=== PATIENT | female | born 1970 | race Caucasian/White ===

== ENCOUNTER → 2016-10-16 | Outpatient (CLI) | payer MEDICAID ==
[~2016-10-16] MED LIST: ACYC-114; ALBU18HF INH; BISA10SU54 PR; BUPR100T6 PO; DIAZ5TAB PO; DIAZ5TAB4; DOCU100C8 PO; FLUO20CA19 PO; FLUO40CA9; HYDR-3138 PO; HYDR-3241; HYDR-882 PO; METH500T7 PO; METH500T97 PO; MORP20CA18; MORP30CP12 PO; MORP30TA3 PO; MORP60TA22 PO; OMNIPAQUE 350 MG/ML, 100ML BOTTLE ONE; ONDA4TAB7 PO; ONDA8TAB16 SL; OXYC5TAB3 PO; POLY17PO5 PO; PROP10TA PO; SENN1TAB7 PO; SUMA25TA3 PO; TOPI100T24
== END | disposition home or self-care (01) ==
LOC: CFH 12:39
PROVIDERS: ATTEND Internal Medicine Gastroenterology
DX: K85.90 Acute pancreatitis without necrosis or infection, unspecified (principal); K86.89 Other specified diseases of pancreas; R94.5 Abnormal results of liver function studies; E27.8 Other specified disorders of adrenal gland
CPT/HCPCS: 71260; 74177; Q9967

== ENCOUNTER 2017-03-11 09:46 | Emergency (ER) | payer MEDICAID ==
[~2017-03-11] VITALS: Ht 160 cm; Wt 72.6 kg
[~2017-03-11 09:46] MED LIST changes: +DIPH25CA61 PO; +DOCU100C33 PO; -DOCU100C8 PO; -HYDR-3138 PO; +HYDR-3237 PO; -OMNIPAQUE 350 MG/ML, 100ML BOTTLE ONE; +ONDA4TAB10 PO; +POLY17PO3 PO; +SUMA100T4 PO
[2017-03-11 09:48] VITALS: BP 125/81
[2017-03-11] MEDS ORDERED: MORPHINE SULFATE 4 MG/ML, 1ML ONE ×2 (10:24→10:44)
[2017-03-11] MEDS ORDERED: ONDANSETRON 2MG/ML, 2ML ONE (10:24)
[2017-03-11] MEDS ORDERED: MORPHINE SULFATE 4 MG/ML, 1ML IVPush PRN (10:30)
[2017-03-11] MEDS ORDERED: SODIUM CHLORIDE FLUSH 10ML SYR IVF ONE (10:30)
[2017-03-11] MEDS ORDERED: ONDANSETRON 2MG/ML, 2ML IVPush ONE (10:30)
[2017-03-11] MEDS ORDERED: SODIUM CHLORIDE 0.9% 1,000ML IVBOLUS ONE (10:30)
[2017-03-11 10:31] LABS: HEMATOCRIT 42.9 % (34.6-47.8); HEMOGLOBIN 14.5 g/dL (11.7-16.4); WHITE BLOOD COUNT 7.1 x10^3/uL (3.4-10)
[2017-03-11 10:44] LABS: BLOOD UREA NITROGEN 8 mg/dL (7-18)
[2017-03-11 10:47] LABS: ASPARTATE AMINO TRANSFERASE 58 U/L (15-37)
== END 2017-03-11 11:32 | disposition home or self-care (01) ==
LOC: ED 10:54
DX: N30.00 Acute cystitis without hematuria (principal); R10.13 Epigastric pain; R10.12 Left upper quadrant pain; R10.31 Right lower quadrant pain; J45.909 Unspecified asthma, uncomplicated; G89.29 Other chronic pain; M54.9 Dorsalgia, unspecified
CPT/HCPCS: 36415; 74020; 80053; 81001; 83690; 85025; 85610; 87077; 87086; 96374; 96375; 99285; J2405; J7030; 87186

== ENCOUNTER 2017-05-28 11:14 | Inpatient (IN) | payer MEDICAID ==
[~2017-05-28] VITALS: Ht 160 cm; Wt 76.1 kg
[2017-05-28] MEDS ORDERED: KETOROLAC 30 MG/1 ML IM ONE (12:00)
[2017-05-28] MEDS ORDERED: KETOROLAC 30 MG/1 ML ONE (12:13)
[2017-05-28 12:35] LABS: BLOOD UREA NITROGEN 11 mg/dL (7-18)
[2017-05-28 12:39] LABS: ASPARTATE AMINO TRANSFERASE 208 U/L (15-37)
[2017-05-28 12:49] LABS: HEMATOCRIT 41.6 % (34.6-47.8); HEMOGLOBIN 14.1 g/dL (11.7-16.4); WHITE BLOOD COUNT 7.5 x10^3/uL (3.4-10)
[2017-05-28] MEDS ORDERED: SODIUM CHLORIDE FLUSH 10ML SYR IVF ONE (13:30)
[2017-05-28] MEDS ORDERED: SODIUM CHLORIDE 0.9% 1,000ML IVBOLUS ONE (13:30)
[2017-05-28] MEDS ORDERED: ONDANSETRON 2MG/ML, 2ML IVPush ONE (13:30)
[2017-05-28] MEDS ORDERED: GABA300C10 PO (13:53)
[2017-05-28] MEDS ORDERED: ONDANSETRON 2MG/ML, 2ML ONE (13:56)
[2017-05-28] MEDS ORDERED: HYDROmorphone 1 MG/ML, 1ML ONE ×2 (13:56→14:41)
[2017-05-28 14:01] LABS: HCG UR LOT HCG7030192
[2017-05-28] MEDS: HYDROmorphone 1 MG/ML, 1ML IVPush PRN ×2 (14:07→14:46)
[2017-05-28 14:12] LABS: HCG UR OBC PASS
[2017-05-28] MEDS ORDERED: SODIUM CHLORIDE 0.9% 1,000 ML IV SCH (15:54)
[2017-05-28] MEDS ORDERED: ONDANSETRON 2MG/ML, 2ML IVPush PRN (16:00)
[2017-05-28] MEDS ORDERED: OXYcodone/APAP 5/325MG TABLET PO PRN (16:00)
[2017-05-28] MEDS ORDERED: LABETALOL 5MG/ML, 20ML IVPush PRN (16:00)
[2017-05-28] MEDS ORDERED: hydrALAzine 20 MG/ML, 1ML IVPush PRN (16:00)
[2017-05-28] MEDS ORDERED: ACETAMINOPHEN 325 MG TABLET PO PRN (16:00)
[2017-05-28] MEDS ORDERED: ALBUTEROL SULFATE 2.5 MG/3 ML NPPB PRN (17:30)
[2017-05-28] MEDS ORDERED: ALBUTEROL SULFATE 2.5 MG/3 ML HHN PRN (18:30)
[2017-05-28] MEDS ORDERED: KETOROLAC 30 MG/1 ML IVPush SCH (19:00)
[2017-05-28 19:23] VITALS: BP 110/68
[2017-05-28] MEDS: HYDROmorphone 2 MG/ML, 1ML IVPush PRN ×2 (19:42→20:33)
[2017-05-28] MEDS ORDERED: GABAPENTIN 300 MG CAPSULE PO SCH (21:00)
[2017-05-28] MEDS ORDERED: HYDROcodone/APAP 5/325 TABLET PO PRN (21:00)
[2017-05-28] MEDS: SODIUM CHLORIDE 0.9% 1,000 ML IV SCH (21:00)
[2017-05-29] MEDS: HYDROmorphone 2 MG/ML, 1ML IVPush PRN ×4 (01:28→12:06)
[2017-05-29] MEDS: HEPARIN 5,000 UNITS/ML, 1ML SQ SCH ×3 (01:28→17:11)
[2017-05-29 01:34] VITALS: BP 93/55
[2017-05-29] MEDS: KETOROLAC 30 MG/1 ML IVPush PRN ×3 (02:23→14:29)
[2017-05-29] MEDS: SODIUM CHLORIDE 0.9% 1,000 ML IV SCH ×2 (05:01→12:07)
[2017-05-29 06:09] LABS: HEMATOCRIT 40.8 % (34.6-47.8); HEMOGLOBIN 13.9 g/dL (11.7-16.4); WHITE BLOOD COUNT 5.5 x10^3/uL (3.4-10)
[2017-05-29 06:22] LABS: BLOOD UREA NITROGEN 11 mg/dL (7-18)
[2017-05-29 06:27] LABS: ASPARTATE AMINO TRANSFERASE 136 U/L (15-37)
[2017-05-29] MEDS ORDERED: PNEUMOCOCCAL 23 VACCINE IM-VACC ONE (06:30)
[2017-05-29 06:56] VITALS: BP 95/59
[2017-05-29] MEDS ORDERED: HYDROmorphone 1 MG/ML, 1ML ONE ×2 (08:17→12:03)
[2017-05-29] MEDS ORDERED: SUMATRIPTAN 100 MG TABLET PO PRN (09:00)
[2017-05-29] MEDS: SUMATRIPTAN 100 MG TABLET PO PRN (12:06)
[2017-05-29 12:16] VITALS: BP 103/63
[2017-05-29] MEDS ORDERED: SODIUM CHLORIDE 0.9% 1,000 ML IV SCH (15:54)
[2017-05-29] MEDS: HYDROcodone/APAP 5/325 TABLET PO PRN ×2 (17:11→23:40)
[2017-05-29 18:57] VITALS: BP 99/61
[2017-05-30 01:32] VITALS: BP 97/55
[2017-05-30] MEDS: KETOROLAC 30 MG/1 ML IVPush PRN (02:44)
[2017-05-30] MEDS: HEPARIN 5,000 UNITS/ML, 1ML SQ SCH ×2 (02:44→09:30)
[2017-05-30 05:30] LABS: ASPARTATE AMINO TRANSFERASE 36 U/L (15-37); BLOOD UREA NITROGEN 14 mg/dL (7-18)
[2017-05-30 06:54] VITALS: BP 109/70
[2017-05-30] MEDS: HYDROcodone/APAP 5/325 TABLET PO PRN (07:31)
[2017-05-30] MEDS: SUMATRIPTAN 100 MG TABLET PO PRN (09:04)
== END 2017-05-30 10:40 | disposition home or self-care (01) | DRG 439 ==
LOC: ED 14:05 → EDIP 15:29 → 3NE 18:18 → DCLOUNGE 05-30 10:33
PROVIDERS: ADMIT Family Medicine; ATTEND Family Medicine
DX: K85.90 Acute pancreatitis without necrosis or infection, unspecified (principal); G82.20 Paraplegia, unspecified; E86.0 Dehydration; K86.1 Other chronic pancreatitis; F17.200 Nicotine dependence, unspecified, uncomplicated; Z80.0 Family history of malignant neoplasm of digestive organs; E66.9 Obesity, unspecified; F10.10 Alcohol abuse, uncomplicated; G43.909 Migraine, unspecified, not intractable, without status migrainosus; G89.29 Other chronic pain; R07.81 Pleurodynia; F32.9 Major depressive disorder, single episode, unspecified; I10 Essential (primary) hypertension; J45.909 Unspecified asthma, uncomplicated; Z90.49 Acquired absence of other specified parts of digestive tract; Z98.84 Bariatric surgery status; Z68.29 Body mass index [BMI] 29.0-29.9, adult; Z87.440 Personal history of urinary (tract) infections; Z23 Encounter for immunization; Z88.0 Allergy status to penicillin; Z88.2 Allergy status to sulfonamides
CPT/HCPCS: 36415; 71020; 80053; 81003; 81025; 83690; 83735; 84100; 85025; 90732; 93005; 96361; 96372; 96374; 96375; 96376; J1170; J1644; J1885; J2405; J7030

== ENCOUNTER 2018-03-18 21:49 | Emergency (ER) | payer MEDICAID ==
[~2018-03-18] VITALS: Ht 160 cm; Wt 69.4 kg
[~2018-03-18 21:49] MED LIST changes: +GABA300C10 PO; -SENN1TAB7 PO; +SENN1TAB8 PO
[2018-03-18 21:56] VITALS: BP 123/56
[2018-03-18] MEDS ORDERED: AMOXICILLIN/CLAV 875-125MG TABLET PO STA (22:47)
[2018-03-18] MEDS ORDERED: DIPHENHYDRAMINE 50 MG CAPSULE PO STA (22:48)
[2018-03-18] MEDS ORDERED: FAMOTIDINE 20 MG TABLET PO ONE (23:00)
[2018-03-18] MEDS ORDERED: FAMOTIDINE 20 MG TABLET ONE (23:06)
[2018-03-18] MEDS ORDERED: AMOXICILLIN/CLAV 875-125MG TABLET ONE (23:06)
[2018-03-18] MEDS ORDERED: DIPHENHYDRAMINE 25 MG CAPSULE ONE (23:06)
== END 2018-03-18 23:34 | disposition home or self-care (01) ==
LOC: ED 23:28
DX: S01.85XA Open bite of other part of head, initial encounter (principal); S01.05XA Open bite of scalp, initial encounter; J45.909 Unspecified asthma, uncomplicated; F17.210 Nicotine dependence, cigarettes, uncomplicated; W55.01XA Bitten by cat, initial encounter; Y93.89 Activity, other specified; Y92.009 Unspecified place in unspecified non-institutional (private) residence as the place of occurrence of the external cause; Y99.8 Other external cause status
CPT/HCPCS: 99284

== ENCOUNTER 2018-05-17 16:52 | Emergency (ER) | payer MEDICAID ==
[~2018-05-17] VITALS: Ht 160 cm; Wt 69.2 kg
[~2018-05-17 16:52] MED LIST changes: +HYDR-3653 PO; -HYDR-882 PO
[2018-05-17 17:01] VITALS: BP 125/84
[2018-05-17] MEDS ORDERED: SILVER SULF. CRM 1% , 25GM TP ONE (17:30)
[2018-05-17] MEDS ORDERED: SILVER SULF. CRM 1% , 25GM ONE (17:48)
[2018-05-17] MEDS ORDERED: OXYcodone/APAP 5/325MG TABLET ONE (17:49)
[2018-05-17] MEDS ORDERED: OXYcodone/APAP 5/325MG TABLET PO ONE (18:30)
== END 2018-05-17 18:34 | disposition home or self-care (01) ==
LOC: ED 18:15
DX: T23.152A Burn of first degree of left palm, initial encounter (principal); T23.132A Burn of first degree of multiple left fingers (nail), not including thumb, initial encounter; T31.0 Burns involving less than 10% of body surface; Z90.49 Acquired absence of other specified parts of digestive tract; F17.200 Nicotine dependence, unspecified, uncomplicated; X10.1XXA Contact with hot food, initial encounter; Y93.89 Activity, other specified; Y99.8 Other external cause status; Y92.009 Unspecified place in unspecified non-institutional (private) residence as the place of occurrence of the external cause
CPT/HCPCS: 16000; 99284

== ENCOUNTER → 2018-09-26 | Outpatient (CLI) | payer MEDICAID ==
[~2018-09-26] MED LIST changes: +GADOBUTROL 7.5 MMOL/7.5 ML PFS ONE; +POLY17PO29 PO; -POLY17PO3 PO; -PROP10TA PO; +PROP10TA16 PO; +SENN-177 PO; -SENN1TAB8 PO
== END | disposition home or self-care (01) ==
LOC: CFH 07:52
PROVIDERS: ATTEND Registered Nurse
DX: G43.711 Chronic migraine without aura, intractable, with status migrainosus (principal)
CPT/HCPCS: 70544; 70553; A9585